=== PATIENT | male | born 1960 | race African-American/Black ===

== ENCOUNTER 2017-07-21 21:35 | Inpatient (IN) | payer SELFPAY ==
[~2017-07-21] VITALS: Ht 182.9 cm; Wt 136.1 kg
[2017-07-21] MEDS ORDERED: NITROGLYCERIN OINT 1GM/INCH UDPKT TD STA (22:00)
[2017-07-21] MEDS ORDERED: ONDANSETRON HCL 4MG/2ML VIAL IV STA (22:00)
[2017-07-21] MEDS ORDERED: FUROSEMIDE 40MG/4ML VIAL IV STA (22:00)
[2017-07-21] MEDS ORDERED: MORPHINE SULFATE 4 MG/ML CPJ (NOT FOR IM USE) IV STA (22:00)
[2017-07-21 22:59] LABS: CHLORIDE 96 mEq/L (98-107)
[2017-07-21 23:35] LABS: BASOPHILS % 1.1 % (0.0-2.0); EOSINOPHILS % 3.3 % (0.0-5.0); HEMATOCRIT. 40.5 % (42.0-52.0); HEMOGLOBIN. 14.1 g/dL (14.0-18.0); LYMPHOCYTES % 31.6 % (20.0-50.0); MEAN CORPUSCULAR HEMOGLOBIN 29.1 pg (28.0-32.0); MEAN CORPUSCULAR VOLUME 83.7 fL (80.0-94.0); MEAN PLATELET VOLUME 7.7 fl (7.4-10.4); MONOCYTES % 6.6 % (2.0-8.0); NEUTROPHILS % 57.4 % (40.0-76.0); PLATELET 251 x1000/uL (130-400); RED BLOOD CELL COUNT 4.84 mill/uL (4.7-6.1)
[2017-07-21 23:39] LABS: INR 1.1
[2017-07-22] MEDS ORDERED: CLONIDINE 0.1MG TABLET PO PRN (03:00)
[2017-07-22] MEDS ORDERED: ACETAMINOPHEN 325MG TABLET PO PRN (03:00)
[2017-07-22] MEDS ORDERED: MAGNESIUM/ALUMINUM HYDROXIDE/SIMETHICONE 30ML UDC PO PRN (03:00)
[2017-07-22] MEDS ORDERED: IPRATROPIUM/ALBUTEROL 0.5-3(2.5)MG/3ML NEB INH PRN (03:00)
[2017-07-22] MEDS ORDERED: ENOXAPARIN 40MG/0.4ML SYR SUBCUT SCH ×2 (03:00→09:00)
[2017-07-22] MEDS ORDERED: DIPHENHYDRAMINE 50MG/ML VIAL IV PRN (03:00)
[2017-07-22] MEDS ORDERED: GUAIFENESIN 200MG/10ML SUGAR FREE UDC PO PRN (03:00)
[2017-07-22] MEDS ORDERED: ONDANSETRON HCL 4MG/2ML VIAL IV PRN (03:00)
[2017-07-22] MEDS ORDERED: DEXTROSE 50% WATER 50ML SYRINGE IV PRN (03:30)
[2017-07-22 04:42] VITALS: BP 135/88
[2017-07-22] MEDS: MORPHINE SULFATE 4 MG/ML CPJ (NOT FOR IM USE) IV PRN ×2 (04:42→11:01)
[2017-07-22 04:50] VITALS: BP 135/88
[2017-07-22] MEDS ORDERED: TRAZ-132 PO (05:10)
[2017-07-22] MEDS ORDERED: SODIUM CHLORIDE 0.9% INJ 3ML FLUSH IVF SCH (06:00)
[2017-07-22] MEDS ORDERED: BLOOD SUGAR DIAGNOSTIC STRIP TEST SCH (07:20)
[2017-07-22] MEDS ORDERED: INSULIN LISPRO 100 UNITS/ML SUBCUT SCH (07:50)
[2017-07-22 08:44] VITALS: BP 135/87
[2017-07-22] MEDS ORDERED: FUROSEMIDE 40MG/4ML VIAL IVP SCH (09:00)
[2017-07-22] MEDS ORDERED: LISINOPRIL 10MG TABLET PO SCH (09:00)
[2017-07-22] MEDS ORDERED: SODIUM CHLORIDE 0.9% 1,000 ML IV SCH (09:30)
[2017-07-22] MEDS ORDERED: REGADENOSON 0.4 MG/5 ML IV NR (09:30)
[2017-07-22] MEDS ORDERED: INSULIN GLARGINE UD 100 UNITS/ML SYR SUBCUT SCH (10:00)
[2017-07-22 11:01] VITALS: BP 135/87
[2017-07-22 11:07] LABS: T4 FREE 1.06 ng/dL (0.76-1.46)
== END 2017-07-22 12:00 | disposition left against medical advice (07) | DRG 194 ==
LOC: ER 21:53 → EDBEDREQ 22:07 → 6WST 07-22 01:00 → EDBEDREQ 07-22 01:07 → ENRESERV 07-22 02:46
PROVIDERS: ADMIT Internal Medicine; ATTEND Internal Medicine
DX: I11.0 Hypertensive heart disease with heart failure (principal); Z68.41 Body mass index [BMI] 40.0-44.9, adult; I50.40 Unspecified combined systolic (congestive) and diastolic (congestive) heart failure; E11.9 Type 2 diabetes mellitus without complications; E78.5 Hyperlipidemia, unspecified; E78.00 Pure hypercholesterolemia, unspecified; F17.200 Nicotine dependence, unspecified, uncomplicated; E66.9 Obesity, unspecified; Z53.21 Procedure and treatment not carried out due to patient leaving prior to being seen by health care provider; Z86.73 Personal history of transient ischemic attack (TIA), and cerebral infarction without residual deficits
CPT/HCPCS: 36415; 71045; 80053; 80061; 82962; 83036; 83880; 84439; 84443; 84484; 85025; 85610; 85730; 93005; J1650; J1815; J1940; J2270; J2405; J7030

== ENCOUNTER 2021-07-21 11:38 | Inpatient (IN) | payer OTHER ==
[~2021-07-21] VITALS: Ht 195.6 cm; Wt 155.1 kg
[~2021-07-21 11:38] MED LIST: TRAZ-252 PO
[2021-07-21] MEDS ORDERED: ASPIRIN 81MG TABLET PO ONE (12:15)
[2021-07-21] MEDS ORDERED: NITROGLYCERIN OINT 1GM/INCH UDPKT TD ONE (12:15)
[2021-07-21 12:47] LABS: ETHANOL BLOOD < 10 mg/dL
[2021-07-21] MEDS ORDERED: IOHEXOL-300 100 ML BOTTLE ONE (13:23)
[2021-07-21 14:20] LABS: BASOPHILS % 1.1 % (0.0-2.0); HEMATOCRIT. 37.5 % (42.0-52.0); HEMOGLOBIN. 12.6 g/dL (14.0-18.0); MEAN CORPUSCULAR HEMOGLOBIN 29.7 pg (28.0-32.0); MEAN CORPUSCULAR VOLUME 88.5 fL (80.0-94.0); MEAN PLATELET VOLUME 7.6 fl (7.4-10.4); MONOCYTES % 6.9 % (2.0-8.0); PLATELET 222 x1000/uL (130-400); RED BLOOD CELL COUNT 4.24 mill/uL (4.7-6.1); RED CELL DISTRIBUTION WIDTH 13.6 % (11.6-14.6)
[2021-07-21] MEDS ORDERED: MORPHINE SULFATE 4 MG/ML CPJ (NOT FOR IM USE) IV STA (14:28)
[2021-07-21] MEDS ORDERED: ONDANSETRON HCL 4MG/2ML INJ IV STA (14:28)
[2021-07-21 14:33] LABS: CHLORIDE 107 mEq/L (98-107)
[2021-07-21] MEDS ORDERED: HYDROCODONE/ACETAMINOPHEN 5/325MG TABLET PO ONE (16:30)
[2021-07-21 20:34] VITALS: BP 138/84
[2021-07-21 21:00] VITALS: BP 138/84
[2021-07-21] MEDS ORDERED: GABA300S PO (21:02)
[2021-07-21] MEDS ORDERED: ATOR40TA70 MT (21:04)
[2021-07-21] MEDS ORDERED: LISI10TA26 MT (21:08)
[2021-07-21] MEDS ORDERED: NA PHOS,M-B/NA PHOS,DI-BA ENEMA 118ML PR PRN (21:15)
[2021-07-21] MEDS ORDERED: ACETAMINOPHEN 650MG SUPP PR PRN ×2 (21:15)
[2021-07-21] MEDS ORDERED: CLONIDINE 0.1MG TABLET PO PRN (21:15)
[2021-07-21] MEDS ORDERED: IPRATROPIUM/ALBUTEROL 0.5-3(2.5)MG/3ML NEB HHN PRN (21:15)
[2021-07-21] MEDS ORDERED: HYDROCODONE/ACETAMINOPHEN 5/325MG TABLET PO PRN (21:15)
[2021-07-21] MEDS ORDERED: LORAZEPAM 0.5MG TABLET PO PRN (21:15)
[2021-07-21] MEDS ORDERED: ACETAMINOPHEN 325MG TABLET PO PRN ×2 (21:15)
[2021-07-21] MEDS ORDERED: DOCUSATE SODIUM 100MG CAPSULE PO PRN (21:15)
[2021-07-21] MEDS ORDERED: GUAIFENESIN 200MG/10ML SUGAR FREE UDC PO PRN (21:15)
[2021-07-21] MEDS ORDERED: ONDANSETRON HCL 4MG/2ML INJ IV PRN (21:15)
[2021-07-21] MEDS ORDERED: DEXTROSE 50% WATER 50ML SYRINGE IV PRN (21:15)
[2021-07-21] MEDS ORDERED: MAGNESIUM/ALUMINUM HYDROXIDE/SIMETHICONE 30ML UDC PO PRN (21:15)
[2021-07-21] MEDS: INSULIN GLARGINE 100 UNITS/ML SUBCUT SCH (21:45)
[2021-07-21] MEDS: ENOXAPARIN 40MG/0.4ML SYR SUBCUT SCH (21:47)
[2021-07-21] MEDS ORDERED: GABAPENTIN 300MG CAPSULE PO SCH (22:10)
[2021-07-21] MEDS ORDERED: ATORVASTATIN CALCIUM 20MG TABLET PO SCH (22:20)
[2021-07-21] MEDS ORDERED: DIPHENHYDRAMINE 25MG CAPSULE PO NR (22:30)
[2021-07-21] MEDS: ACETAMINOPHEN WITH CODEINE 300/30MG TABLET PO PRN (22:56)
[2021-07-21] MEDS: GABAPENTIN 300MG CAPSULE PO SCH (22:58)
[2021-07-22] VITALS: BP 149/67
[2021-07-22 04:00] VITALS: BP 137/84
[2021-07-22] MEDS: ACETAMINOPHEN WITH CODEINE 300/30MG TABLET PO PRN ×4 (04:29→20:24)
[2021-07-22] MEDS: DIPHENHYDRAMINE 25MG CAPSULE PO PRN (05:11)
[2021-07-22 06:08] LABS: HEMATOCRIT. 39.1 % (42.0-52.0); HEMOGLOBIN. 13.1 g/dL (14.0-18.0); LYMPHOCYTES % 42.1 % (20.0-50.0); MEAN CORPUSCULAR HEMOGLOBIN 29.4 pg (28.0-32.0); MEAN CORPUSCULAR VOLUME 87.4 fL (80.0-94.0); MEAN PLATELET VOLUME 8.1 fl (7.4-10.4); MONOCYTES % 7.7 % (2.0-8.0); NEUTROPHILS % 45.2 % (40.0-76.0); PLATELET 240 x1000/uL (130-400); RED BLOOD CELL COUNT 4.48 mill/uL (4.7-6.1)
[2021-07-22 06:22] LABS: CHLORIDE 108 mEq/L (98-107)
[2021-07-22] MEDS: GABAPENTIN 300MG CAPSULE PO SCH ×3 (06:25→20:19)
[2021-07-22] MEDS: BLOOD SUGAR DIAGNOSTIC STRIP TEST SCH ×4 (06:25→20:19)
[2021-07-22 06:51] LABS: CREATINE KINASE 188 IU/L (39-308); HDL CHOLESTEROL 42 mg/dL (40-59); LDL CHOLESTEROL 164 mg/dL (5-100)
[2021-07-22] MEDS: INSULIN LISPRO 100 UNITS/ML SUBCUT SCH ×4 (06:58→20:21)
[2021-07-22 08:00] VITALS: BP 134/73
[2021-07-22] MEDS: ENOXAPARIN 40MG/0.4ML SYR SUBCUT SCH ×2 (09:34→20:19)
[2021-07-22] MEDS: LISINOPRIL 20MG TABLET PO SCH (09:35)
[2021-07-22] MEDS: INSULIN GLARGINE 100 UNITS/ML SUBCUT SCH ×2 (09:37→20:21)
[2021-07-22 12:00] VITALS: BP 153/97
[2021-07-22] MEDS ORDERED: REGADENOSON 0.4 MG/5 ML IV NR (12:00)
[2021-07-22] MEDS ORDERED: NALOXONE HCL 0.4MG/ML VIAL IV PRN (12:15)
[2021-07-22] MEDS ORDERED: LORAZEPAM 2MG/ML CPJ IV NR (15:00)
[2021-07-22 16:07] VITALS: BP 150/81
[2021-07-22] MEDS ORDERED: FLUMAZENIL 0.1 MG/ML 5ML VIAL IV PRN (16:45)
[2021-07-22] MEDS ORDERED: FLUMAZENIL 0.1 MG/ML 5ML VIAL IV NR (17:00)
[2021-07-22 20:00] VITALS: BP 143/87
[2021-07-22] MEDS: ATORVASTATIN CALCIUM 40MG TABLET PO SCH (20:18)
[2021-07-23] VITALS (7 sets, daily range): BP systolic 124–177; BP diastolic 65–96
[2021-07-23] MEDS: BLOOD SUGAR DIAGNOSTIC STRIP TEST SCH ×4 (05:37→21:01)
[2021-07-23] MEDS: INSULIN LISPRO 100 UNITS/ML SUBCUT SCH ×4 (05:37→21:01)
[2021-07-23] MEDS: GABAPENTIN 300MG CAPSULE PO SCH ×3 (05:38→20:59)
[2021-07-23 08:17] LABS: CLARITY URINE CLEAR (CLEAR); COLOR URINE YELLOW (YELLOW); KETONES URINE NEGATIVE (NEGATIVE); LEUKOCYTE ESTERASE URINE NEGATIVE (NEGATIVE); NITRITE URINE NEGATIVE (NEGATIVE); OCCULT BLOOD URINE 2+ (NEGATIVE); PROTEIN URINE 3+ (NEGATIVE); SPECIFIC GRAVITY URINE 1.039 (1.005-1.030); UROBILINOGEN URINE 0.2 E.U./dL (0.2-1.0)
[2021-07-23 08:44] LABS: *AMPHETAMINES SCREEN URINE NEGATIVE (NEGATIVE); *BARBITURATES SCREEN URINE NEGATIVE (NEGATIVE); *BENZODIAZEPINES SCREEN URINE NEGATIVE (NEGATIVE); *COCAINE SCREEN URINE NEGATIVE (NEGATIVE); CANNABINOID URINE SCREEN NEGATIVE (NEGATIVE); METHADONE URINE SCREEN NEGATIVE (NEGATIVE); OPIATES URINE SCREEN PRESUMTIVE POSITIVE (NEGATIVE); PHENCYCLIDINE URINE SCREEN NEGATIVE (NEGATIVE)
[2021-07-23] MEDS: LISINOPRIL 20MG TABLET PO SCH ×2 (09:00→13:11)
[2021-07-23] MEDS: INSULIN GLARGINE 100 UNITS/ML SUBCUT SCH ×3 (10:00→21:00)
[2021-07-23] MEDS: ENOXAPARIN 40MG/0.4ML SYR SUBCUT SCH ×3 (10:00→20:58)
[2021-07-23] MEDS ORDERED: REGADENOSON 0.4 MG/5 ML IV ONE (11:00)
[2021-07-23] MEDS: DIPHENHYDRAMINE 25MG CAPSULE PO PRN (18:19)
[2021-07-23] MEDS: ACETAMINOPHEN WITH CODEINE 300/30MG TABLET PO PRN (18:20)
[2021-07-23] MEDS: ATORVASTATIN CALCIUM 40MG TABLET PO SCH (20:58)
[2021-07-23 21:51] LABS: BASOPHILS % 0.7 % (0.0-2.0); EOSINOPHILS % 2.8 % (0.0-5.0); HEMATOCRIT. 40.1 % (42.0-52.0); HEMOGLOBIN. 13.2 g/dL (14.0-18.0); LYMPHOCYTES % 28.1 % (20.0-50.0); MEAN CORPUSCULAR HEMOGLOBIN 29.2 pg (28.0-32.0); MEAN CORPUSCULAR VOLUME 88.6 fL (80.0-94.0); MEAN PLATELET VOLUME 7.8 fl (7.4-10.4); MONOCYTES % 8.2 % (2.0-8.0); NEUTROPHILS % 60.2 % (40.0-76.0); PLATELET 257 x1000/uL (130-400); RED BLOOD CELL COUNT 4.53 mill/uL (4.7-6.1); RED CELL DISTRIBUTION WIDTH 14.2 % (11.6-14.6)
[2021-07-24] VITALS: BP 135/77
[2021-07-24] MEDS: ACETAMINOPHEN WITH CODEINE 300/30MG TABLET PO PRN ×2 (01:03→09:24)
[2021-07-24] MEDS: DIPHENHYDRAMINE 25MG CAPSULE PO PRN (01:06)
[2021-07-24 04:00] VITALS: BP 136/87
[2021-07-24] MEDS: GABAPENTIN 300MG CAPSULE PO SCH ×2 (05:46→14:11)
[2021-07-24] MEDS: INSULIN LISPRO 100 UNITS/ML SUBCUT SCH ×2 (05:47→12:40)
[2021-07-24] MEDS: BLOOD SUGAR DIAGNOSTIC STRIP TEST SCH ×2 (05:47→12:10)
[2021-07-24 06:24] VITALS: BP 136/87
[2021-07-24 08:00] VITALS: BP 156/110
[2021-07-24 08:38] LABS: BASOPHILS % 0.6 % (0.0-2.0); EOSINOPHILS % 3.9 % (0.0-5.0); HEMATOCRIT. 39.5 % (42.0-52.0); LYMPHOCYTES % 33.6 % (20.0-50.0); MEAN CORPUSCULAR HEMOGLOBIN 28.9 pg (28.0-32.0); MEAN CORPUSCULAR VOLUME 87.9 fL (80.0-94.0); MEAN PLATELET VOLUME 7.6 fl (7.4-10.4); MONOCYTES % 9.8 % (2.0-8.0); NEUTROPHILS % 52.1 % (40.0-76.0); PLATELET 233 x1000/uL (130-400); RED BLOOD CELL COUNT 4.49 mill/uL (4.7-6.1)
[2021-07-24] MEDS ORDERED: METF-416 MT (09:10)
[2021-07-24] MEDS ORDERED: T3 PO ×4 (09:10→12:26)
[2021-07-24] MEDS: ENOXAPARIN 40MG/0.4ML SYR SUBCUT SCH (09:23)
[2021-07-24] MEDS: LISINOPRIL 20MG TABLET PO SCH (09:24)
[2021-07-24] MEDS: INSULIN GLARGINE 100 UNITS/ML SUBCUT SCH (09:33)
[2021-07-24 10:45] VITALS: BP 156/110
[2021-07-24 12:00] VITALS: BP 148/78
== END 2021-07-24 14:35 | disposition home or self-care (01) | DRG 309 ==
LOC: ER 11:38 → EDBEDREQTM 16:44 → EDBEDREQ 18:46 → ENRESERV 18:51 → EDBD 19:37 → 8WST 19:37
PROVIDERS: ADMIT Family Medicine Adult Medicine; ATTEND Family Medicine Adult Medicine
DX: I44.0 Atrioventricular block, first degree (principal); I24.9 Acute ischemic heart disease, unspecified; I13.0 Hypertensive heart and chronic kidney disease with heart failure and stage 1 through stage 4 chronic kidney disease, or unspecified chronic kidney disease; E11.22 Type 2 diabetes mellitus with diabetic chronic kidney disease; D64.9 Anemia, unspecified; E78.5 Hyperlipidemia, unspecified; I48.91 Unspecified atrial fibrillation; I50.9 Heart failure, unspecified; Z20.822 Contact with and (suspected) exposure to COVID-19; N18.9 Chronic kidney disease, unspecified; Z96.659 Presence of unspecified artificial knee joint; E66.9 Obesity, unspecified; Z79.4 Long term (current) use of insulin; Z86.73 Personal history of transient ischemic attack (TIA), and cerebral infarction without residual deficits; Z88.8 Allergy status to other drugs, medicaments and biological substances
CPT/HCPCS: 36415; 70551; 71045; 74177; 78452; 80048; 80053; 80061; 80305; 80320; 81003; 82550; 82962; 83036; 83735; 83880; 84443; 84484; 85025; 87426; 93005; 93017; 93306; 97162; 97166; 99285; A9500; C1893; J1650; J1815; J2060; J2270; J2405; J2785; J3490; Q0163; Q9967; G0480

== ENCOUNTER 2023-01-16 13:42 | Inpatient (IN) | payer OTHER ==
[~2023-01-16] VITALS: Ht 195.6 cm; Wt 138.3 kg
[~2023-01-16 13:42] MED LIST changes: +ATOR40TA70 MT; +GABA300S4 PO; +LISI10TA26 MT; +METF-416 MT; +T3 PO
[2023-01-16 13:43] VITALS: O2SAT 99
[2023-01-16] MEDS ORDERED: IOHEXOL-350 100 ML BOTTLE ONE (15:04)
[2023-01-16] MEDS ORDERED: LABETALOL 5MG/ML SYR 20 MG/4 ML SYRINGE IV ONE (16:02)
[2023-01-16 16:03] LABS: BASOPHILS % 0.9 % (0.0-2.0); EOSINOPHILS % 4.2 % (0.0-5.0); HEMATOCRIT. 43.3 % (42.0-52.0); HEMOGLOBIN. 14.3 g/dL (14.0-18.0); MEAN CORPUSCULAR HEMOGLOBIN 29.2 pg (28.0-32.0); MEAN CORPUSCULAR HGB CONC 33.1 g/dL (31.0-37.0); MEAN CORPUSCULAR VOLUME 88.4 fL (80.0-94.0); MEAN PLATELET VOLUME 7.4 fl (7.4-10.4); MONOCYTES % 6.5 % (2.0-8.0); NEUTROPHILS % 67.4 % (40.0-76.0); PLATELET 255 x1000/uL (130-400); RED BLOOD CELL COUNT 4.91 mill/uL (4.7-6.1); RED CELL DISTRIBUTION WIDTH 14.6 % (11.6-14.6); WHITE BLOOD COUNT 6.8 x1000/uL (4.5-11.0)
[2023-01-16 16:08] LABS: CHLORIDE 107 mEq/L (98-107); INDEX HEMOLYSI 1 (1-3); INDEX ICTERIC 1 (1-4); INDEX LIPEMIC 1 (1-3); POTASSIUM 3.9 mEq/L (3.5-5.1); SODIUM 139 mEq/L (136-145)
[2023-01-16 16:09] LABS: PROTHROMBIN TIME 10.5 sec (9.6-11.0)
[2023-01-16 16:18] LABS: ALANINE AMINOTRANSFERASE 12 IU/L (13-61); ALBUMIN 3.2 g/dL (3.4-5.0); ASPARTATE AMINOTRANSFERASE 15 IU/L (15-37); BILIRUBIN TOTAL 0.5 mg/dL (0.1-1.0); CALCIUM 8.9 mg/dL (8.5-10.1); CARBON DIOXIDE 29 mEq/L (21-32); CREATININE 2.4 mg/dL (0.6-1.3); GLUCOSE 187 mg/dL (70-105); PROTEIN TOTAL 7.8 g/dL (6.0-8.3); TROPONIN I HIGH SENSITIVITY 51 ng/L (<78); UREA NITROGEN BLOOD 41 mg/dL (7-21)
[2023-01-16] MEDS ORDERED: MORPHINE SULFATE 4 MG/ML CPJ (NOT FOR IM USE) IV ONE (17:15)
[2023-01-16] MEDS ORDERED: IPRATROPIUM/ALBUTEROL 0.5-3(2.5)MG/3ML NEB HHN PRN (17:45)
[2023-01-16] MEDS ORDERED: DEXTROSE 50% WATER 50ML SYRINGE IV PRN (17:45)
[2023-01-16] MEDS ORDERED: CLONIDINE 0.1MG TABLET PO PRN (17:45)
[2023-01-16] MEDS: INSULIN LISPRO 100 UNITS/ML SUBCUT SCH ×2 (18:20→21:00)
[2023-01-16] MEDS: BLOOD SUGAR DIAGNOSTIC STRIP TEST SCH ×2 (18:37→21:41)
[2023-01-16 19:59] LABS: CLARITY URINE CLEAR (CLEAR); COLOR URINE YELLOW (YELLOW); GLUCOSE URINE 2+ (NEGATIVE); KETONES URINE NEGATIVE (NEGATIVE); LEUKOCYTE ESTERASE URINE NEGATIVE (NEGATIVE); NITRITE URINE NEGATIVE (NEGATIVE); OCCULT BLOOD URINE 1+ (NEGATIVE); PH URINE 5.5 (4.5-8.0); PROTEIN URINE 4+ (NEGATIVE); SPECIFIC GRAVITY URINE 1.029 (1.005-1.030); UROBILINOGEN URINE 0.2 E.U./dL (0.2-1.0)
[2023-01-16 20:01] LABS: BACTERIA URINE NONE SEEN; SQUAMOUS EPITHELIAL CELL URINE NONE SEEN /lpf (RARE/1+); WBC URINE 0-2 /hpf (0-2); YEAST URINE NONE SEEN
[2023-01-16 20:19] LABS: RBC URINE 0-2 /hpf (0-2)
[2023-01-16 20:43] LABS: *AMPHETAMINES SCREEN URINE NEGATIVE (NEGATIVE); *BARBITURATES SCREEN URINE NEGATIVE (NEGATIVE); *BENZODIAZEPINES SCREEN URINE NEGATIVE (NEGATIVE); *COCAINE SCREEN URINE NEGATIVE (NEGATIVE); CANNABINOID URINE SCREEN NEGATIVE (NEGATIVE); ECSTASY MDMA SCREEN URINE NEGATIVE (NEGATIVE); METHADONE URINE SCREEN NEGATIVE (NEGATIVE); OPIATES URINE SCREEN NEGATIVE (NEGATIVE); PHENCYCLIDINE URINE SCREEN NEGATIVE (NEGATIVE)
[2023-01-16] MEDS ORDERED: HYDRALAZINE 20MG/ML VIAL IV NR (21:00)
[2023-01-16] MEDS ORDERED: MORPHINE SULFATE 2 MG/ML CPJ (NOT FOR IM USE) IV PRN (21:45)
[2023-01-16 22:00] VITALS: BP 130/64; PULSE 75; RESP 18; TEMP 97.5
[2023-01-16] MEDS ORDERED: LORAZEPAM 2MG/ML CPJ IV PRN (22:15)
[2023-01-16] MEDS ORDERED: HYDRALAZINE 20MG/ML VIAL IV PRN (22:15)
[2023-01-16] MEDS ORDERED: GABA-532 PO (22:34)
[2023-01-16] MEDS ORDERED: GABAPENTIN 300MG CAPSULE PO SCH (22:45)
[2023-01-16] MEDS ORDERED: HYDROMORPHONE HCL/PF 2MG/ML CPJ IV NR (22:45)
[2023-01-16] MEDS: ATORVASTATIN CALCIUM 40MG TABLET PO SCH (22:56)
[2023-01-16] MEDS ORDERED: ENOXAPARIN 40MG/0.4ML SYR SUBCUT SCH (23:00)
[2023-01-17] VITALS: BP 171/96; PULSE 76; RESP 20; TEMP 97.3
[2023-01-17] MEDS ORDERED: DIPHENHYDRAMINE 50MG/ML VIAL IV NR (01:15)
[2023-01-17 04:00] VITALS: BP 179/101; PULSE 76; RESP 18; TEMP 97.9
[2023-01-17] MEDS ORDERED: LIDOCAINE 5% PATCH TOP SCH (05:00)
[2023-01-17] MEDS: BLOOD SUGAR DIAGNOSTIC STRIP TEST SCH ×2 (06:24→11:47)
[2023-01-17] MEDS: INSULIN LISPRO 100 UNITS/ML SUBCUT SCH ×2 (06:29→13:00)
[2023-01-17 08:00] VITALS: BP 168/89; PULSE 74; RESP 18; TEMP 98.2
[2023-01-17] MEDS ORDERED: PANTOPRAZOLE SODIUM 40 MG/VIAL IV SCH (09:00)
[2023-01-17] MEDS: ATORVASTATIN CALCIUM 40MG TABLET PO SCH (09:11)
[2023-01-17 12:00] VITALS: BP 197/102; PULSE 71; RESP 18; TEMP 97.6
[2023-01-17 13:22] VITALS: BP 197/102; PULSE 71; RESP 18; TEMP 97.6
== END 2023-01-17 15:45 | disposition left against medical advice (07) | DRG 683 ==
LOC: ER 14:00 → EDBEDREQSVC 16:59 → EDBEDREQTM 16:59 → MICUSO 16:59 → 8WST 22:41
PROVIDERS: ADMIT Internal Medicine; ATTEND Internal Medicine
DX: N17.9 Acute kidney failure, unspecified (principal); I13.0 Hypertensive heart and chronic kidney disease with heart failure and stage 1 through stage 4 chronic kidney disease, or unspecified chronic kidney disease; I69.354 Hemiplegia and hemiparesis following cerebral infarction affecting left non-dominant side; J98.11 Atelectasis; E78.5 Hyperlipidemia, unspecified; I50.9 Heart failure, unspecified; N18.9 Chronic kidney disease, unspecified; E11.22 Type 2 diabetes mellitus with diabetic chronic kidney disease; I48.91 Unspecified atrial fibrillation; Z88.8 Allergy status to other drugs, medicaments and biological substances; Z79.1 Long term (current) use of non-steroidal anti-inflammatories (NSAID); Z79.899 Other long term (current) drug therapy; Z88.5 Allergy status to narcotic agent
CPT/HCPCS: 36415; 70496; 70498; 71045; 71275; 73030; 74174; 80053; 80305; 81003; 82962; 83036; 83605; 83880; 84145; 84484; 85025; 85379; 93005; 93306; 93923; 93970; 93971; 97162; 97535; 99291; C9113; J0360; J1170; J1200; J1650; J1815; J2060; J3490; Q9967